=== PATIENT | male | born 1975 | race Caucasian/White ===

== ENCOUNTER 2016-08-25 20:49 | Emergency (ER) | payer SELFPAY | END 2016-08-25 22:05 | disposition left against medical advice (07) | LOC: ER 20:49 | DX: Z53.9 Procedure and treatment not carried out, unspecified reason (principal); R39.198 Other difficulties with micturition ==

== ENCOUNTER 2016-10-26 13:22 | Emergency (ER) | payer SELFPAY ==
[2016-10-26 13:31] VITALS: BP 133/85
== END 2016-10-26 14:45 | disposition left against medical advice (07) ==
LOC: ER 13:22
DX: Z53.9 Procedure and treatment not carried out, unspecified reason (principal); R10.9 Unspecified abdominal pain

== ENCOUNTER 2018-03-27 13:52 | Inpatient (IN) | payer MEDICAID ==
[2018-03-27] MEDS ORDERED: NORMAL SALINE 1000 ML 1,000 ML IV ONE (14:04)
[2018-03-27] MEDS ORDERED: ONDANSETRON HCL INJ/PF 4 MG/2 ML SDV IV ONE ×2 (14:04→16:13)
[2018-03-27] MEDS ORDERED: MORPHINE SULFATE 10 MG/ML INJ IV ONE ×2 (14:04→17:08)
--- NOTE | 2018-03-27 14:04 | ER Document Report ---
ED Medical Screen (RME) - General Chief Complaint: Nausea/Vomiting Stated Complaint: VOMITTNING Time Seen by Provider: 03/27/18 14:00 Notes: Patient is a 42-year-old male that presents to the emergency department for chief complaint of nausea, vomiting and abdominal pain, pain is mainly in epigastric region. ROS: Unless otherwise stated in this report the patient's positive and negative responses for review of systems for constitutional, eyes, ENT, cardiovascular, respiratory, gastrointestinal, neurological, genitourinary, musculoskeletal, and integumentary systems and related systems to the presenting problem are either as stated in the HPI or were not pertinent or were negative for the symptoms and/or complaints related to the presenting medical problem. PHYSICAL EXAMINATION: Vital signs reviewed. GENERAL: Well-appearing, well-nourished and in no acute distress. HEAD: Atraumatic, normocephalic. EYES: Pupils equal round extraocular movements intact, conjunctiva are normal. ENT: Nares patent NECK: Normal range of motion CV: Heart regular rate and rhythm LUNGS: No respiratory distress Musculoskeletal: Normal range of motion NEUROLOGICAL: Normal speech PSYCH: Normal mood, normal affect. MDM: Patient seen and examined for rapid initial assessment. Vital signs reviewed. A comprehensive ED assessment and evaluation of the patient, analysis of test results and completion of the medical decision making process will be conducted by additional ED providers. *Note is created using voice recognition software and may contain spelling, syntax or grammatical errors. TRAVEL OUTSIDE OF THE [place] IN LAST 30 DAYS: No - Related Data Allergies/Adverse Reactions: No Known Allergies Allergy (Verified 07/05/17 12:49) Past Medical History - Past Medical History Cardiac Medical History: Denies: Hx Coronary Artery Disease, Hx Heart Attack, Hx Hypertension Pulmonary Medical History: Reports: Hx Pneumonia Denies: Hx Asthma, Hx Bronchitis, Hx COPD Neurological Medical History: Denies: Hx Cerebrovascular Accident, Hx Seizures Renal/ Medical History: Denies: Hx Peritoneal Dialysis Musculoskeltal Medical History: Reports Hx Arthritis - BILAT UE Past Surgical History: Reports: Hx Oral Surgery - wisdom - Immunizations Hx Diphtheria, Pertussis, Tetanus Vaccination: Yes Physical Exam - Vital signs Vitals: Temp Pulse Resp BP Pulse Ox 98.4 F 83 18 150/97 H 95 03/27/18 13:58 03/27/18 13:58 03/27/18 13:58 03/27/18 13:58 03/27/18 13:58 Course - Vital Signs Vital signs: Temp Pulse Resp BP Pulse Ox 98.4 F 83 18 150/97 H 95 03/27/18 13:58 03/27/18 13:58 03/27/18 13:58 03/27/18 13:58 03/27/18 13:58 Doctor's Discharge - Discharge Referrals: ÁNGEL ELKINS PA-C [Primary Care Provider] - Follow up as needed
[2018-03-27 14:36] LABS: ABSOLUTE BASOPHILS # (AUTO) 0.1 10^3/uL (0.0-0.2); ABSOLUTE MONOCYTES (AUTO) 1.6 10^3/uL (0.1-1.4); ABSOLUTE NEUT (AUTO) 11.8 10^3/uL (1.7-8.2); APPEARANCE,URINE SLIGHTLY-CLOUDY; BASOPHILS % (AUTO) 0.5 % (0-2); BILIRUBIN,URINE NEGATIVE (NEGATIVE); COLOR,URINE AMBER; GLUCOSE, URINE NEGATIVE (NEGATIVE); HEMATOCRIT 53.1 % (37.9-51.0); HEMOGLOBIN 18.1 g/dL (13.5-17.0); KETONES,URINE NEGATIVE (NEGATIVE); LEUKOCYTE ESTERASE,URINE NEGATIVE (NEGATIVE); LYMPHOCYTES % (AUTO) 18.1 % (13-45); MEAN CORPUSCULAR HEMOGLOBIN 29.9 pg (27.0-33.4); MEAN CORPUSCULAR HGB CONC 34.2 g/dL (32.0-36.0); MEAN CORPUSCULAR VOLUME 87 fl (80-97); MONOCYTES % (AUTO) 9.6 % (3-13); NITRITE,URINE NEGATIVE (NEGATIVE); PLATELET COUNT 409 10^3/uL (150-450); PROTEIN,URINE 30 mg/dL (NEGATIVE); RED BLOOD COUNT 6.07 10^6/uL (4.35-5.55); SEGMENTED NEUTROPHILS % (AUTO) 71.8 % (42-78); TOTAL CELLS COUNTED % (AUTO) 100 %; WHITE BLOOD COUNT 16.4 10^3/uL (4.0-10.5)
[2018-03-27 14:53] LABS: ALANINE AMINOTRANSFERASE < 6 U/L (21-72); ALKALINE PHOSPHATASE 89 U/L (38-126); ANION GAP 17 (5-19); ASPARTATE AMINO TRANSFERASE 30 U/L (17-59); BILIRUBIN,DIRECT 0.5 mg/dL (0.0-0.4); BILIRUBIN,TOTAL 1.4 mg/dL (0.2-1.3); BLOOD UREA NITROGEN 17 mg/dL (7-20); CALCIUM 10.1 mg/dL (8.4-10.2); CARBON DIOXIDE 33 mmol/L (22-30); CHLORIDE 88 mmol/L (98-107); GLUCOSE 129 mg/dL (75-110); LIPASE 570.7 U/L (23-300); POTASSIUM 3.4 mmol/L (3.6-5.0); SODIUM 137.8 mmol/L (137-145); TOTAL PROTEIN 8.9 g/dL (6.3-8.2)
--- NOTE | 2018-03-27 15:01 | ER Document Report ---
ED General - General Chief Complaint: Nausea/Vomiting Stated Complaint: VOMITTNING Time Seen by Provider: 03/27/18 14:00 TRAVEL OUTSIDE OF THE [place] IN LAST 30 DAYS: No - HPI Onset/Duration: Gradual, Constant Quality of pain: Sharp, Stabbing Severity: Moderate Associated symptoms: Diarrhea, Nausea, Vomiting Exacerbated by: Denies Relieved by: Denies Similar symptoms previously: No Notes: Patient is a 42-year-old male that presents to the emergency department for chief complaint of nausea vomiting and abdominal pain. Patient reports general malaise for the last week. He has had 4 days of nausea and vomiting. He reports epigastric abdominal pain that radiates diffusely across his abdomen. The pain is sharp and constant. The pain is getting worse since onset. He denies any aggravating or relieving factors. He states he is able to keep down Pedialyte occasionally but is having a hard time eating because of the nausea. He reports a few episodes of diarrhea for the last few days as well. He denies any sick contacts. He reports fevers at home but has not taken his temperature. Past Medical History: Hypertension Past Surgical History: Negative Social History: Daily tobacco. Denies drugs and alcohol Family History: Reviewed and noncontributory for presenting illness Allergies: Reviewed, see documented allergy list. REVIEW OF SYSTEMS: CONSTITUTIONAL : fever chills No diaphoresis No recent illness EENT: No vision changes No congestion No sore throat CARDIOVASCULAR: No chest pain No palpitations RESPIRATORY: No shortness of breath No cough No difficulty breathing GASTROINTESTINAL: abdominal pain nausea vomiting diarrhea GENITOURINARY: No dysuria No hematuria No difficulty urinating MUSCULOSKELETAL: No back pain No leg pain No arm pain SKIN: No rashes No lesions LYMPHATIC: No swollen, enlarged glands. NEUROLOGICAL: No lightheadedness No headache No weakness No paresthesias PSYCHIATRIC: No anxiety No depression PHYSICAL EXAMINATION: Vital signs reviewed, nursing noted reviewed. GENERAL: Well-appearing, well-nourished and in no acute distress. HEAD: Atraumatic, normocephalic. EYES: Eyes appear normal, extraocular movements intact, sclera anicteric, conjunctiva are normal. ENT: nares patent, oropharynx clear without exudates. Moist mucous membranes. NECK: Normal range of motion, supple without lymphadenopathy LUNGS: Breath sounds clear to auscultation bilaterally and equal. No wheezes rales or rhonchi. HEART: Regular rate and rhythm without murmurs ABDOMEN: Soft, diffusely tender worse in the epigastric region, normoactive bowel sounds. No rebound, guarding, or rigidity. No masses appreciated. EXTREMITIES: Nontender, good range of motion, no pitting or edema. NEUROLOGICAL: No focal neurological deficits. Moves all extremities spontaneously Motor and sensory grossly intact on exam. PSYCH: Normal mood, normal affect. SKIN: Warm, Dry, normal turgor, no rashes or lesions noted on exposed skin - Related Data Allergies/Adverse Reactions: No Known Allergies Allergy (Verified 07/05/17 12:49) Past Medical History - Social History Smoking Status: Current Every Day Smoker Frequency of alcohol use: None Drug Abuse: None Family History: Reviewed & Not Pertinent Patient has suicidal ideation: No Patient has homicidal ideation: No - Past Medical History Cardiac Medical History: Denies: Hx Coronary Artery Disease, Hx Heart Attack, Hx Hypertension Pulmonary Medical History: Reports: Hx Pneumonia Denies: Hx Asthma, Hx Bronchitis, Hx COPD Neurological Medical History: Denies: Hx Cerebrovascular Accident, Hx Seizures Renal/ Medical History: Denies: Hx Peritoneal Dialysis Musculoskeletal Medical History: Reports Hx Arthritis - BILAT UE Past Surgical History: Reports: Hx Oral Surgery - wisdom - Immunizations Hx Diphtheria, Pertussis, Tetanus Vaccination: Yes Review of Systems - Review of Systems Notes: Dictated Physical Exam - Vital signs Vitals: Temp Pulse Resp BP Pulse Ox 98.4 F 83 18 150/97 H 95 03/27/18 13:58 03/27/18 13:58 03/27/18 13:58 03/27/18 13:58 03/27/18 13:58 - Notes Notes: Dictated Course - Re-evaluation Re-evalutation: 03/27/18 14:59 Vitals reviewed. Nursing notes reviewed. IV hydration, Zofran and morphine for symptomatic treatment. Lab work shows elevated lipase which in combination with his symptoms is consistent with acute pancreatitis. Patient also has a leukocytosis but no other Sirs criteria. Urine is negative for infection. Laboratory 03/27/18 03/27/18 03/27/18 14:15 14:15 14:15 WBC 16.4 H RBC 6.07 H Hgb 18.1 H Hct 53.1 H MCV 87 MCH 29.9 MCHC 34.2 RDW 13.0 Plt Count 409 Seg Neutrophils % 71.8 Lymphocytes % 18.1 Monocytes % 9.6 Eosinophils % 0.0 Basophils % 0.5 Absolute Neutrophils 11.8 H Absolute Lymphocytes 3.0 Absolute Monocytes 1.6 H Absolute Eosinophils 0.0 Absolute Basophils 0.1 Sodium 137.8 Potassium 3.4 L Chloride 88 L Carbon Dioxide 33 H Anion Gap 17 BUN 17 Creatinine 0.92 Est GFR ( Amer) > 60 Est GFR (Non-Af Amer) > 60 Glucose 129 H Calcium 10.1 Total Bilirubin 1.4 H Direct Bilirubin 0.5 H Neonat Total Bilirubin Not Reportable Neonat Direct Bilirubin Not Reportable Neonat Indirect Bili Not Reportable AST 30 ALT < 6 L Alkaline Phosphatase 89 Total Protein 8.9 H Albumin 5.0 Lipase 570.7 H Urine Color CARL Urine Appearance SLIGHTLY-CLOUDY Urine pH 5.0 Ur Specific [place] 1.030 Urine Protein 30 H Urine Glucose (UA) NEGATIVE Urine Ketones NEGATIVE Urine Blood SMALL H Urine Nitrite NEGATIVE Urine Bilirubin NEGATIVE Urine Urobilinogen 4.0 H Ur Leukocyte Esterase NEGATIVE Urine WBC (Auto) 1 Urine RBC (Auto) 1 Urine Bacteria (Auto) TRACE Squamous Epi Cells Auto <1 Urine Mucus (Auto) MANY Urine Ascorbic Acid NEGATIVE 03/27/18 14:59 03/27/18 16:18 Patient reevaluated and still having nausea and vomiting. He was given a second dose of Zofran for his intractable vomiting. CT scan is unremarkable. Because patient's abdominal pain and vomiting are only minimally improved as well as his elevation in lipase and his acute leukocytosis he will be admitted to the hospital for monitoring as well as IV hydration and further management of his pain and nausea. Case discussed with Dr. Torrez who accepted admission. Patient in agreement with this plan and stable at time of admission Abdomen/Pelvis CT 03/27/18 14:56 IMPRESSION: NO SIGNIFICANT OR ACUTE FINDING IN THE ABDOMEN OR PELVIS ON CT SCAN WITH IV CONTRAST. - Vital Signs Vital signs: Temp Pulse Resp BP Pulse Ox 98.4 F 83 18 150/97 H 95 03/27/18 13:58 03/27/18 13:58 03/27/18 13:58 03/27/18 13:58 03/27/18 13:58 - Laboratory Result Diagrams: 03/27/18 14:15 03/27/18 14:15 Laboratory results interpreted by me: 03/27/18 03/27/1818 14:15 14:15 14:15 WBC 16.4 H RBC 6.07 H Hgb 18.1 H Hct 53.1 H Absolute Neutrophils 11.8 H Absolute Monocytes 1.6 H Potassium 3.4 L Chloride 88 L Carbon Dioxide 33 H Glucose 129 H Total Bilirubin 1.4 H Direct Bilirubin 0.5 H ALT < 6 L Total Protein 8.9 H Lipase 570.7 H Urine Protein 30 H Urine Blood SMALL H Urine Urobilinogen 4.0 H - EKG Interpretation by Me Additional EKG results interpreted by me: 03/27/18 15:26 Interpreted by myself 1431: Normal sinus rhythm, rate 64, normal axis, no ectopy, no ST elevation Discharge - Discharge Clinical Impression: Pancreatitis Qualifiers: Chronicity: acute Pancreatitis type: other Acute pancreatitis complication: unspecified Qualified Code(s): K85.80 - Other acute pancreatitis without necrosis or infection Intractable vomiting Qualifiers: Vomiting type: unspecified Nausea presence: with nausea Qualified Code(s): R11.2 - Nausea with vomiting, unspecified Abdominal pain Qualifiers: Abdominal location: epigastric Qualified Code(s): R10.13 - Epigastric pain Condition: Stable Disposition: ADMITTED OBSERVATION Admitting Provider: Hospitalist Unit Admitted: Medical Floor
--- NOTE | 2018-03-27 16:00 | RADIOLOGY REPORT (SQ) ---
EXAM DESCRIPTION: CT ABD/PELVIS WITH IV ONLY COMPLETED DATE/TIME: 03/27/2018 3:43 pm REASON FOR STUDY: epigastric pain COMPARISON: 11/02/2013 TECHNIQUE: CT scan of the abdomen and pelvis performed using helical scanning technique with dynamic intravenous contrast injection. No oral contrast. Images reviewed with lung, soft tissue, and bone windows. Reconstructed coronal and sagittal MPR images reviewed. Delayed images for evaluation of the urinary system also acquired. All images stored on PACS. All CT scanners at this facility use dose modulation, iterative reconstruction, and/or weight based d osing when appropriate to reduce radiation dose to as low as reasonably achievable (ALARA). [facility]: Dose Right [facility]: CareDose [facility]: Dose Right [facility]: Teradose 4D [facility]: Geckoboard CONTRAST TYPE AND DOSE: 83 mL IV of Omnipaque 350- low osmolar. RENAL FUNCTION: BUN 17 creatinine 0.92 RADIATION DOSE: CT Rad equipment meets quality standard of care and radiation dose reduction techniq ues were employed. CTDIvol: 5.6 - 7.4 mGy. DLP: 737 mGy-cm.. LIMITATIONS: None. FINDINGS: LOWER CHEST: No significant findings. No nodules or infiltrates. LIVER: Normal size. No masses. No dilated ducts. SPLEEN: Normal size. No focal lesions. PANCREAS: No masses. No significant calcifications. No adjacent inflammation or peripancreatic fluid collections. Pancreatic duct not dilated. GALLBLADDER: No identified stones by CT criteria. No inflammatory changes to suggest cholecystitis. ADRENAL GLANDS: No significant masses or asymmetry. RIGHT KIDNEY AND URETER: No solid masses. Small cysts of the posterior cortex of the left kidney. N o significant calcifications. No hydronephrosis or hydroureter. LEFT KIDNEY AND URETER: No solid masses. No significant calcifications. No hydronephrosis or hydr oureter. AORTA AND VESSELS: No aneurysm. No dissection. Renal arteries, SMA, celiac without stenosis. RETROPERITONEUM: No retroperitoneal adenopathy, hemorrhage or masses. BOWEL AND PERITONEAL CAVITY: No dilated loops of bowel. No masses or inflammatory changes. No free f luid or peritoneal masses. No free air. APPENDIX: Normal. PELVIS: No mass. No free fluid. Normal bladder. ABDOMINAL WALL: No masses. No hernias. BONES: No significant or acute findings. OTHER: No other significant finding. IMPRESSION: NO SIGNIFICANT OR ACUTE FINDING IN THE ABDOMEN OR PELVIS ON CT SCAN WITH IV CONTRAST. TECHNICAL DOCUMENTATION: JOB ID: [id number] Quality ID # [id number]: Final reports with documentation of one or more dose reduction techniques (e.g., Au tomated exposure control, adjustment of the mA and/or kV according to patient size, use of iterative reconstruction technique) 2010 [employer]- All Rights Reserved Reading location - IP/workstation name: [email or web address]
--- NOTE | 2018-03-27 16:06 | EKG REPORT ---
SEVERITY:- NORMAL ECG - SINUS RHYTHM : Confirmed by: Rossana Martin 27-Mar-2018 16:05:16
[2018-03-27] MEDS ORDERED: ONDANSETRON HCL INJ/PF 4 MG/2 ML SDV IV PRN (16:51)
[2018-03-27] MEDS ORDERED: HYDRALAZINE HCL 10 MG TABLET PO PRN (17:09)
--- NOTE | 2018-03-27 17:23 | PDOC H&P ---
History of Present Illness Admission Date/PCP: 03/27/18 16:30 Patient complains of: Midepigastric abdominal pain intractable nausea and vomiting History of Present Illness: STEVEN CASTREJON is a 42 year old male who presents the emergency room with a complaint of midepigastric abdominal pain and intractable nausea and vomiting for the past 5 days. Patient states on Wednesday night he began to have some pain in his stomach area. The nausea was then followed by vomiting. The next day he had numerous episodes of vomiting to the point of dry heaves. The vomitus contained coffee ground material on and off and at times he was able to cough up blood clots. He denies any change in his bowel habits although his last bowel movement was Wednesday of last week. He attempted to keep himself hydrated with Pedialyte and other liquids but was having intermittent vomiting. At presentation to the emergency room he did not have acute renal injury he was hypokalemic make with a potassium of 3.3. His lipase was 500 and his white count was 16,000 with a hemoglobin of 18 consistent with volume contraction. A CT of the abdomen was performed which was unremarkable and patient was given IV hydration and antiemetics continue to have nausea while in the emergency room. Patient relates a history of possible ulcer disease 10 years ago he was treated with omeprazole and Mylanta. He suffers from hypertension and is on only a single medication but he does not remember the name of it. He does not drink alcohol do drugs but does smoke a pack a day and has for the past 30 years. With his history of coffee-ground and hematemesis it was recommended he come in for admission and further evaluation. 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 Hematology: Denies: Anemia Past Surgical History Past Surgical History: Reports: None Social History Smoking Status: Current Every Day Smoker Cigarettes Packs Per Day: 1 Number of Years Smokin Frequency of Alcohol Use: None Drugs: None - Advance Directive Resuscitation Status: Full Code Family History Family History: COPD - Father, DM - Mother, Hypertension - Mother Parental Family History Reviewed: Yes Children Family History Reviewed: Yes Sibling(s) Family History Reviewed.: Yes Medication/Allergy Home Medications: Alprazolam [Xanax] 1 mg PO TID 06/21/17 Lisinopril 20 mg PO DAILY 03/27/18 Allergies/Adverse Reactions: No Known Allergies Allergy (Verified 07/05/17 12:49) Review of Systems All systems: reviewed and no additional remarkable complaints except as stated - Complete review of systems negative with the exception of the nausea vomiting as stated in the chief complaint Physical Exam Vital Signs: Temp Pulse Resp BP Pulse Ox 98.4 F 83 18 150/97 H 95 03/27/18 13:58 03/27/18 13:58 03/27/18 13:58 03/27/18 13:58 03/27/18 13:58 General appearance: PRESENT: no acute distress, well-developed, well-nourished Head exam: PRESENT: atraumatic, normocephalic Eye exam: PRESENT: conjunctiva pink, EOMI, PERRLA. ABSENT: scleral icterus Mouth exam: PRESENT: moist, tongue midline Neck exam: ABSENT: carotid bruit, JVD, lymphadenopathy, thyromegaly Respiratory exam: PRESENT: clear to auscultation [place]. ABSENT: rales, rhonchi, wheezes Cardiovascular exam: PRESENT: RRR. ABSENT: diastolic murmur, rubs, systolic murmur Pulses: PRESENT: normal dorsalis pedis pul GI/Abdominal exam: PRESENT: normal bowel sounds, soft, tenderness - Epigastric tenderness. ABSENT: distended, guarding, mass, organolmegaly, rebound Rectal exam: PRESENT: deferred Extremities exam: PRESENT: full ROM. ABSENT: calf tenderness, clubbing, pedal edema Neurological exam: PRESENT: alert, awake, oriented to person, oriented to place , oriented to time, oriented to situation, CN II-XII grossly intact. ABSENT: motor sensory deficit Psychiatric exam: PRESENT: appropriate affect, normal mood. ABSENT: homicidal ideation, suicidal ideation Skin exam: PRESENT: dry, intact, warm. ABSENT: cyanosis, rash Results Impressions: Abdomen/Pelvis CT 03/27/18 14:56 IMPRESSION: NO SIGNIFICANT OR ACUTE FINDING IN THE ABDOMEN OR PELVIS ON CT SCAN WITH IV CONTRAST. Assessment & Plan - Diagnosis (1) Upper gastrointestinal hemorrhage Is this a current diagnosis for this admission?: Yes Plan: Patient gives a history of coffee ground and bright red blood clot with his emesis on and off throughout the week. His hemoglobin is 18 he is volume contracted although his BUN and creatinine are normal. He may have Tayler- Keyes tear versus diffuse gastritis or an outlet channel ulcer causing his intractable nausea and vomiting. We will place on medical floor begin IV Protonix 40 mg every 12 hours n.p.o. consult surgery for upper endoscopy. Guaiac test stool. Every 6 hours H&H's (2) Pancreatitis Qualifiers: Chronicity: acute Pancreatitis type: other Acute pancreatitis complication: unspecified Qualified Code(s): K85.80 - Other acute pancreatitis without necrosis or infection Is this a current diagnosis for this admission?: Yes Plan: Lipase is 500 which is not twice the upper limits of normal. It is unclear the significance of this will trend lipases daily for the present. (3) Intractable vomiting Qualifiers: Vomiting type: unspecified Nausea presence: with nausea Qualified Code(s) : R11.2 - Nausea with vomiting, unspecified Is this a current diagnosis for this admission?: Yes Plan: Likely due to diffuse gastritis. IV Protonix surgical consult (4) Abdominal pain Qualifiers: Abdominal location: epigastric Qualified Code(s): R10.13 - Epigastric pain Is this a current diagnosis for this admission?: Yes Plan: Due to gastritis. (5) Hypertension Is this a current diagnosis for this admission?: Yes Plan: Patient does not know the name of the single medication he does take. Will use IV hydralazine as needed for now (6) Hypokalemia Is this a current diagnosis for this admission?: Yes Plan: Hydrate with D5 half-normal saline with 20 of K BMP in a.m. make further adjustments going forward when labs become available. - Time Time Spent: 50 to 70 Minutes Anticipated discharge: Home Within: within 48 hours - Inpatient Certification Based on my medical assessment, after consideration of the patient's comorbidities, presenting symptoms, or acuity I expect that the services needed warrant INPATIENT care.: Yes I certify that my determination is in accordance with my understanding of Medicare's requirements for reasonable and necessary INPATIENT services [42 CFR 412.3e].: Yes Medical Necessity: Significant Comorbidiites Make Outpatient Treatment Too Risky , Need Close Monitoring Due to Risk of Patient Decompensation
[2018-03-27 18:50] LABS: ABSOLUTE LYMPHOCYTES (AUTO) 3.3 10^3/uL (0.5-4.7); ABSOLUTE MONOCYTES (AUTO) 1.2 10^3/uL (0.1-1.4); ABSOLUTE NEUT (AUTO) 10.1 10^3/uL (1.7-8.2); BASOPHILS % (AUTO) 0.2 % (0-2); EOSINOPHILS % (AUTO) 0.1 % (0-6); HEMATOCRIT 48.6 % (37.9-51.0); HEMOGLOBIN 16.6 g/dL (13.5-17.0); LYMPHOCYTES % (AUTO) 22.6 % (13-45); MEAN CORPUSCULAR HEMOGLOBIN 30.1 pg (27.0-33.4); MEAN CORPUSCULAR HGB CONC 34.2 g/dL (32.0-36.0); MEAN CORPUSCULAR VOLUME 88 fl (80-97); MONOCYTES % (AUTO) 8.5 % (3-13); PLATELET COUNT 371 10^3/uL (150-450); RED BLOOD COUNT 5.52 10^6/uL (4.35-5.55); RED CELL DISTRIBUTION WIDTH 12.9 % (11.5-14.0); SEGMENTED NEUTROPHILS % (AUTO) 68.6 % (42-78); TOTAL CELLS COUNTED % (AUTO) 100 %; WHITE BLOOD COUNT 14.7 10^3/uL (4.0-10.5)
[2018-03-27] MEDS: POTASSI CL 20 MEQ/D5-1/2NS 1L 1,000 ML IV PRN (19:35)
--- NOTE | 2018-03-27 21:52 | PDOC CONSULTATION ---
Consultation Consult reason:: Coffee-ground emesis, upper abdominal pain. History of Present Illness Admission Date/PCP: 03/27/18 16:52 History of Present Illness: STEVEN CASTREJON is a 42 year old male seen at the request of the hospitalist service. The patient has a long history of gastroesophageal reflux disease. The patient has not sought treatment due to a lack of insurance. Over the last several days, the patient reports increasing upper abdominal pain, water brash, and a burning sensation in his upper abdomen and lower chest. He rates his pain as 6 out of 10. It is constant and unrelenting. It does not radiate his pain is worse with eating. Nothing makes it better. The patient does not take any antiacid or anti-reflux medications. The patient has increasing amounts of nausea and vomiting. The patient cannot keep anything down at this time. The patient's symptoms have become so severe that he presented to the emergency department. The patient reports smoking every day, as well as large amounts of caffeine usage. He denies alcohol use, NSAID use, and steroid use. He denies headache, shortness of breath, fevers, chills, orthostasis, dizziness, fatigue, blurry vision. 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 Hematology: Denies: Anemia Past Surgical History Past Surgical History: Reports: None Social History Smoking Status: Current Every Day Smoker Cigarettes Packs Per Day: 1 Number of Years Smokin Frequency of Alcohol Use: None Hx Recreational Drug Use: No Drugs: None Hx Prescription Drug Abuse: No - Advance Directive Resuscitation Status: Full Code Family History Family History: COPD - Father, DM - Mother, Hypertension - Mother Parental Family History Reviewed: Yes Children Family History Reviewed: Yes Sibling(s) Family History Reviewed.: Yes Medication/Allergy Home Medications: Alprazolam [Xanax] 1 mg PO TID 06/21/17 Lisinopril 20 mg PO DAILY 03/27/18 Allergies/Adverse Reactions: No Known Allergies Allergy (Verified 07/05/17 12:49) Review of Systems Constitutional: PRESENT: anorexia. ABSENT: chills, fatigue, fever(s), headache( s) Eyes: ABSENT: visual disturbances Ears: ABSENT: hearing changes Nose, Mouth, and Throat: ABSENT: sore throat Cardiovascular: PRESENT: chest pain Respiratory: ABSENT: cough Gastrointestinal: PRESENT: abdominal pain, coffee ground emesis, nausea, vomiting Genitourinary: ABSENT: dysuria Musculoskeletal: ABSENT: back pain Integumentary: ABSENT: pruritus, rash Neurological: ABSENT: abnormal gait, abnormal movements, abnormal speech, confusion, convulsions, dizziness Psychiatric: ABSENT: anxiety, depression Endocrine: ABSENT: cold intolerance, heat intolerance Hematologic/Lymphatic: ABSENT: easy bleeding, easy bruising Physical Exam Vital Signs: Temp Pulse Resp BP Pulse Ox 98.5 F 65 16 137/71 H 97 03/27/18 19:00 03/27/18 19:00 03/27/18 19:00 03/27/18 19:00 03/27/18 19:00 Intake & Output 03/26/18 03/27/18 03/28/18 06:59 06:59 06:59 Weight 72.8 kg General appearance: PRESENT: no acute distress Head exam: PRESENT: atraumatic, normocephalic Eye exam: PRESENT: EOMI, PERRLA. ABSENT: scleral icterus Mouth exam: PRESENT: moist, neck supple Neck exam: ABSENT: meningismus, tenderness, thyromegaly, tracheal deviation Respiratory exam: PRESENT: clear to auscultation carolynn, unlabored. ABSENT: chest wall tenderness, tachypnea, wheezes Cardiovascular exam: PRESENT: RRR Pulses: PRESENT: normal radial pulses Vascular exam: PRESENT: normal capillary refill. ABSENT: pallor GI/Abdominal exam: PRESENT: soft. ABSENT: distended, firm, guarding, hernia, rigid, tenderness Rectal exam: PRESENT: deferred Extremities exam: PRESENT: clubbing Neurological exam: PRESENT: alert, awake, CN II-XII grossly intact. ABSENT: oriented to person, oriented to place, oriented to time, oriented to situation Psychiatric exam: ABSENT: agitated, anxious, depressed Focused psych exam: ABSENT: delusional Skin exam: ABSENT: cyanosis, erythema, jaundice Results Laboratory Results: 03/27/18 18:40 03/27/18 18:40 WBC 14.7 H RBC 5.52 Hgb 16.6 Hct 48.6 MCV 88 MCH 30.1 MCHC 34.2 RDW 12.9 Plt Count 371 Seg Neutrophils % 68.6 Lymphocytes % 22.6 Monocytes % 8.5 Eosinophils % 0.1 Basophils % 0.2 Absolute Neutrophils 10.1 H Absolute Lymphocytes 3.3 Absolute Monocytes 1.2 Absolute Eosinophils 0.0 Absolute Basophils 0.0 Impressions: Abdomen/Pelvis CT 03/27/18 14:56 IMPRESSION: NO SIGNIFICANT OR ACUTE FINDING IN THE ABDOMEN OR PELVIS ON CT SCAN WITH IV CONTRAST. Assessment & Plan - Diagnosis (1) Coffee ground emesis Is this a current diagnosis for this admission?: Yes (2) Abdominal pain Qualifiers: Abdominal location: epigastric Qualified Code(s): R10.13 - Epigastric pain Is this a current diagnosis for this admission?: Yes (3) Intractable vomiting Qualifiers: Vomiting type: unspecified Nausea presence: with nausea Qualified Code(s) : R11.2 - Nausea with vomiting, unspecified Is this a current diagnosis for this admission?: Yes - Plan Summary Plan Summary: This is a 42-year-old male with abdominal pain, coffee-ground emesis, and symptoms consistent with reflux. I believe the patient is experiencing severe gastritis and reflux. I have offered the patient EGD, and he has agreed. Risks /benefits discussed, informed consent obtained, and all questions answered. Currently, the patient is receiving IV PPI twice daily. I would continue this. I would also consider adding Carafate. Will follow.
[2018-03-27] MEDS: PANTOPRAZOLE SODIUM 40 MG VIAL IV SCH (22:47)
[2018-03-27] MEDS: MORPHINE SULFATE 10 MG/ML INJ IV PRN (22:48)
[2018-03-28 00:24] LABS: ABSOLUTE MONOCYTES (AUTO) 1.3 10^3/uL (0.1-1.4); ABSOLUTE NEUT (AUTO) 8.9 10^3/uL (1.7-8.2); BASOPHILS % (AUTO) 0.2 % (0-2); HEMATOCRIT 45.6 % (37.9-51.0); HEMOGLOBIN 15.6 g/dL (13.5-17.0); LYMPHOCYTES % (AUTO) 22.8 % (13-45); MEAN CORPUSCULAR HEMOGLOBIN 30.1 pg (27.0-33.4); MEAN CORPUSCULAR HGB CONC 34.2 g/dL (32.0-36.0); MEAN CORPUSCULAR VOLUME 88 fl (80-97); PLATELET COUNT 327 10^3/uL (150-450); RED BLOOD COUNT 5.17 10^6/uL (4.35-5.55); RED CELL DISTRIBUTION WIDTH 12.8 % (11.5-14.0); TOTAL CELLS COUNTED % (AUTO) 100 %; WHITE BLOOD COUNT 13.3 10^3/uL (4.0-10.5)
[2018-03-28 05:16] LABS: ABSOLUTE BASOPHILS # (AUTO) 0.1 10^3/uL (0.0-0.2); ABSOLUTE EOSINOPHILS # (AUTO) 0.1 10^3/uL (0.0-0.6); ABSOLUTE LYMPHOCYTES (AUTO) 5.6 10^3/uL (0.5-4.7); ABSOLUTE MONOCYTES (AUTO) 1.4 10^3/uL (0.1-1.4); ABSOLUTE NEUT (AUTO) 6.9 10^3/uL (1.7-8.2); BASOPHILS % (AUTO) 0.6 % (0-2); EOSINOPHILS % (AUTO) 0.4 % (0-6); HEMATOCRIT 46.4 % (37.9-51.0); HEMOGLOBIN 15.8 g/dL (13.5-17.0); LYMPHOCYTES % (AUTO) 39.6 % (13-45); MEAN CORPUSCULAR HEMOGLOBIN 29.9 pg (27.0-33.4); MEAN CORPUSCULAR HGB CONC 34.1 g/dL (32.0-36.0); MEAN CORPUSCULAR VOLUME 88 fl (80-97); MONOCYTES % (AUTO) 10.1 % (3-13); PLATELET COUNT 313 10^3/uL (150-450); RED BLOOD COUNT 5.29 10^6/uL (4.35-5.55); RED CELL DISTRIBUTION WIDTH 12.9 % (11.5-14.0); SEGMENTED NEUTROPHILS % (AUTO) 49.3 % (42-78); TOTAL CELLS COUNTED % (AUTO) 100 %
[2018-03-28 05:38] LABS: ANION GAP 11 (5-19); BLOOD UREA NITROGEN 13 mg/dL (7-20); CALCIUM 9.4 mg/dL (8.4-10.2); CARBON DIOXIDE 32 mmol/L (22-30); CHLORIDE 95 mmol/L (98-107); CHOLESTEROL 176.55 mg/dL (0-200); GLUCOSE 99 mg/dL (75-110); LIPASE 178.5 U/L (23-300); PHOSPHORUS 4.1 mg/dL (2.5-4.5); SODIUM 138.4 mmol/L (137-145); TRIGLYCERIDES 127 mg/dL (<150)
[2018-03-28 05:48] LABS: DIRECT LDL 138 mg/dL (<100)
[2018-03-28 05:54] LABS: FREE T3 3.67 pg/mL (2.77-5.27); FREE T4 (FREE THYROXINE) 1.3 ng/dL (0.78-2.19)
[2018-03-28 06:07] LABS: THYROID STIMULATING HORMONE 0.75 uIU/mL (0.47-4.68)
[2018-03-28] MEDS: POTASSI CL 20 MEQ/D5-1/2NS 1L 1,000 ML IV PRN (07:02)
--- NOTE | 2018-03-28 07:29 | PDOC PROGRESS REPORT ---
Subjective Progress Note for:: 03/28/18 Reason For Visit: GASTRITIS UPPER GI BLEED Physical Exam Vital Signs: Temp Pulse Resp BP Pulse Ox 98.5 F 61 16 135/77 H 97 03/27/18 19:00 03/27/18 23:37 03/27/18 23:37 03/27/18 23:37 03/27/18 19:00 Intake & Output 03/27/18 03/28/18 03/29/18 06:59 06:59 06:59 Intake Total 1000 Balance 1000 Weight 73.3 kg General appearance: PRESENT: no acute distress, cooperative Head exam: PRESENT: atraumatic, normocephalic Eye exam: PRESENT: EOMI, PERRLA Mouth exam: PRESENT: moist, neck supple Neck exam: ABSENT: meningismus, tenderness, thyromegaly, tracheal deviation Respiratory exam: PRESENT: clear to auscultation carolynn. ABSENT: chest wall tenderness Cardiovascular exam: PRESENT: RRR Pulses: PRESENT: normal radial pulses Vascular exam: PRESENT: normal capillary refill. ABSENT: pallor GI/Abdominal exam: PRESENT: soft, tenderness - Epigastric Rectal exam: PRESENT: deferred Extremities exam: ABSENT: clubbing Musculoskeletal exam: ABSENT: deformity Neurological exam: PRESENT: alert, awake, oriented to person, oriented to place , oriented to time, oriented to situation, CN II-XII grossly intact Psychiatric exam: ABSENT: agitated, anxious, depressed Focused psych exam: ABSENT: delusional Skin exam: ABSENT: cyanosis, erythema, jaundice Results Laboratory Results: 03/28/18 04:52 03/28/18 04:52 03/27/18 03/28/18 03/28/18 18:40 00:15 04:52 WBC 14.7 H 13.3 H RBC 5.52 5.17 Hgb 16.6 15.6 Hct 48.6 45.6 MCV 88 88 MCH 30.1 30.1 MCHC 34.2 34.2 RDW 12.9 12.8 Plt Count 371 327 Seg Neutrophils % 68.6 67.0 Lymphocytes % 22.6 22.8 Monocytes % 8.5 10.0 Eosinophils % 0.1 0.0 Basophils % 0.2 0.2 Absolute Neutrophils 10.1 H 8.9 H Absolute Lymphocytes 3.3 3.0 Absolute Monocytes 1.2 1.3 Absolute Eosinophils 0.0 0.0 Absolute Basophils 0.0 0.0 Sodium Potassium Chloride Carbon Dioxide Anion Gap BUN Creatinine Est GFR ( Amer) Est GFR (Non-Af Amer) Glucose Calcium Phosphorus Magnesium Triglycerides Cholesterol LDL Cholesterol Direct VLDL Cholesterol HDL Cholesterol Lipase TSH 0.75 Free T4 1.30 Free T3 pg/mL 3.67 03/28/18 03/28/18 04:52 04:52 WBC 14.0 H RBC 5.29 Hgb 15.8 Hct 46.4 MCV 88 MCH 29.9 MCHC 34.1 RDW 12.9 Plt Count 313 Seg Neutrophils % 49.3 Lymphocytes % 39.6 Monocytes % 10.1 Eosinophils % 0.4 Basophils % 0.6 Absolute Neutrophils 6.9 Absolute Lymphocytes 5.6 H Absolute Monocytes 1.4 Absolute Eosinophils 0.1 Absolute Basophils 0.1 Sodium 138.4 Potassium 4.0 Chloride 95 L Carbon Dioxide 32 H Anion Gap 11 BUN 13 Creatinine 0.88 Est GFR ( Amer) > 60 Est GFR (Non-Af Amer) > 60 Glucose 99 Calcium 9.4 Phosphorus 4.1 Magnesium 2.4 H Triglycerides 127 Cholesterol 176.55 LDL Cholesterol Direct 138 H VLDL Cholesterol 25.0 HDL Cholesterol 30 L Lipase 178.5 TSH Free T4 Free T3 pg/mL Impressions: Abdomen/Pelvis CT 03/27/18 14:56 IMPRESSION: NO SIGNIFICANT OR ACUTE FINDING IN THE ABDOMEN OR PELVIS ON CT SCAN WITH IV CONTRAST. Assessment & Plan - Diagnosis (1) Coffee ground emesis Is this a current diagnosis for this admission?: Yes (2) Abdominal pain Qualifiers: Abdominal location: epigastric Qualified Code(s): R10.13 - Epigastric pain Is this a current diagnosis for this admission?: Yes (3) Intractable vomiting Qualifiers: Vomiting type: unspecified Nausea presence: with nausea Qualified Code(s) : R11.2 - Nausea with vomiting, unspecified Is this a current diagnosis for this admission?: Yes - Plan Summary Plan Summary: This is a 42-year-old male with likely gastritis. He reports coffee-ground emesis. The patient is currently on PPI therapy. I have offered him EGD for diagnostic purposes, and he has agreed. Risks/benefits discussed, informed consent obtained, and all questions answered.
[2018-03-28] MEDS: MORPHINE SULFATE 10 MG/ML INJ IV PRN ×2 (07:35→20:28)
[2018-03-28] MEDS: PANTOPRAZOLE SODIUM 40 MG VIAL IV SCH ×2 (10:22→21:52)
[2018-03-28] MEDS ORDERED: PROPOFOL INJ 200 MG/20 ML VIAL IV ONE ×2 (11:42→13:42)
[2018-03-28] MEDS ORDERED: LIDOCAINE 2% INJ-PF (20 MG/ML) 10 ML AMPUL ONE (11:49)
[2018-03-28] MEDS ORDERED: DIPHENHYDRAMINE HCL 50 MG/ML VIAL IV PRN (13:24)
[2018-03-28] MEDS ORDERED: FENTANYL CITRATE INJ/PF 100 MCG/2 ML AMPUL IV PRN ×3 (13:24)
[2018-03-28] MEDS ORDERED: PROMETHAZINE HCL INJ 25 MG/1 ML VIAL IV PRN (13:24)
--- NOTE | 2018-03-28 13:40 | Operative Report ---
Operative Report DATE OF SURGERY: 03/28/18 PREOPERATIVE DIAGNOSIS: Hematemesis POSTOPERATIVE DIAGNOSIS: Same. 1. Severe gastritis. 2. Multiple gastric ulcers. 3. No evidence of active bleeding OPERATION: 1. Esophagogastroduodenoscopy. 2. Gastric antral biopsy for CLOtest SURGEON: MK JOSEPH ANESTHESIA: LMAC TISSUE REMOVED OR ALTERED: Biopsy of gastric antrum for ALDO testing COMPLICATIONS: None ESTIMATED BLOOD LOSS: Scant INTRAOPERATIVE FINDINGS: See below PROCEDURE: Patient taken to the preop holding area the main operating room where LMAC anesthesia was induced. He was placed in a semirecumbent position, tilted to the left side oral mouthpiece inserted and appropriate level of anesthesia confirmed Surgical plan surgical timeout conducted. The flexible adult upper endoscope was advanced to the oropharynx, down the esophagus, through the stomach and into the first and second portions of the duodenum. There was no evidence of active bleeding, or clot. The first and second portion of the duodenum were normal. There were 2 pyloric channel ulcers anterior position, with scar, small, not actively bleeding. There was no evidence of narrowing of the pylorus In the stomach there was moderate to diffuse gastritis with diffuse erythematous areas in the gastric cardia. Photos were taken. There were also multiple small anterior antral ulcers, not actively bleeding. A random biopsy of the gastric antrum was chosen with a cold forceps device and sent for ALDO testing. Bleeding was minimal. Scope was retroflexed and no evidence of hiatal hernia. Photos were taken. Scope was withdrawn to the junction which was at 40 cm from the incisor. There was no evidence of distal esophagitis, no stricture, no bleeding and no varix in the stomach. The scope was withdrawn with the patient oropharynx. He tolerated the procedure well. He was taken to recovery room in stable condition. Impression: Diffuse gastritis with multiple gastric and prepyloric ulcers,: Likely source of bleeding, no acute bleeding at this time. Recommendations: 1. Proton pump inhibitor, await ALDO testing results; follow-up with primary care team 2. Smoking cessation and other precipitating factors to be discussed with patient
--- NOTE | 2018-03-28 14:19 | PDOC PROGRESS REPORT ---
Subjective Progress Note for:: 03/28/18 Subjective:: STEVEN CASTREJON is a 42 year old male who presents the emergency room with a complaint of midepigastric abdominal pain and intractable nausea and vomiting for the past 5 days. Patient states on Wednesday night he began to have some pain in his stomach area. The nausea was then followed by vomiting. The next day he had numerous episodes of vomiting to the point of dry heaves. The vomitus contained coffee ground material on and off and at times he was able to cough up blood clots. He denies any change in his bowel habits although his last bowel movement was Wednesday of last week. He attempted to keep himself hydrated with Pedialyte and other liquids but was having intermittent vomiting. Patient's hemoglobin stable x3. Less abdominal pain. Patient underwent upper endoscopy and numerous small nonbleeding gastric ulcers were found and diffuse severe gastritis. Reason For Visit: GASTRITIS UPPER GI BLEED Physical Exam Vital Signs: Temp Pulse Resp BP Pulse Ox 98.7 F 59 L 16 129/69 H 98 03/28/18 11:22 03/28/18 11:22 03/28/18 11:22 03/28/18 11:22 03/28/18 11:22 Intake & Output 03/27/18 03/28/18 03/29/18 06:59 06:59 06:59 Intake Total 1000 Balance 1000 Weight 73.3 kg General appearance: PRESENT: no acute distress, well-developed, well-nourished Neck exam: ABSENT: carotid bruit, JVD, lymphadenopathy, thyromegaly Respiratory exam: PRESENT: clear to auscultation carolynn. ABSENT: rales, rhonchi, wheezes Cardiovascular exam: PRESENT: RRR. ABSENT: diastolic murmur, rubs, systolic murmur GI/Abdominal exam: PRESENT: normal bowel sounds, soft, tenderness - Midepigastric. ABSENT: distended, guarding, mass, organolmegaly, rebound Extremities exam: PRESENT: full ROM. ABSENT: calf tenderness, clubbing, pedal edema Results Laboratory Results: 03/28/18 04:52 03/28/18 04:52 03/27/18 03/28/18 03/28/18 18:40 00:15 04:52 WBC 14.7 H 13.3 H RBC 5.52 5.17 Hgb 16.6 15.6 Hct 48.6 45.6 MCV 88 88 MCH 30.1 30.1 MCHC 34.2 34.2 RDW 12.9 12.8 Plt Count 371 327 Seg Neutrophils % 68.6 67.0 Lymphocytes % 22.6 22.8 Monocytes % 8.5 10.0 Eosinophils % 0.1 0.0 Basophils % 0.2 0.2 Absolute Neutrophils 10.1 H 8.9 H Absolute Lymphocytes 3.3 3.0 Absolute Monocytes 1.2 1.3 Absolute Eosinophils 0.0 0.0 Absolute Basophils 0.0 0.0 Sodium Potassium Chloride Carbon Dioxide Anion Gap BUN Creatinine Est GFR ( Amer) Est GFR (Non-Af Amer) Glucose Calcium Phosphorus Magnesium Triglycerides Cholesterol LDL Cholesterol Direct VLDL Cholesterol HDL Cholesterol Lipase TSH 0.75 Free T4 1.30 Free T3 pg/mL 3.67 03/28/18 03/28/18 04:52 04:52 WBC 14.0 H RBC 5.29 Hgb 15.8 Hct 46.4 MCV 88 MCH 29.9 MCHC 34.1 RDW 12.9 Plt Count 313 Seg Neutrophils % 49.3 Lymphocytes % 39.6 Monocytes % 10.1 Eosinophils % 0.4 Basophils % 0.6 Absolute Neutrophils 6.9 Absolute Lymphocytes 5.6 H Absolute Monocytes 1.4 Absolute Eosinophils 0.1 Absolute Basophils 0.1 Sodium 138.4 Potassium 4.0 Chloride 95 L Carbon Dioxide 32 H Anion Gap 11 BUN 13 Creatinine 0.88 Est GFR ( Amer) > 60 Est GFR (Non-Af Amer) > 60 Glucose 99 Calcium 9.4 Phosphorus 4.1 Magnesium 2.4 H Triglycerides 127 Cholesterol 176.55 LDL Cholesterol Direct 138 H VLDL Cholesterol 25.0 HDL Cholesterol 30 L Lipase 178.5 TSH Free T4 Free T3 pg/mL Impressions: Abdomen/Pelvis CT 03/27/18 14:56 IMPRESSION: NO SIGNIFICANT OR ACUTE FINDING IN THE ABDOMEN OR PELVIS ON CT SCAN WITH IV CONTRAST. Assessment & Plan - Diagnosis (1) Acute gastritis without bleeding Is this a current diagnosis for this admission?: Yes Plan: No active bleeding on endoscopy moderate to severe gastritis. Patient did have some coffee grounds prior to admission but no active bleeding during endoscopy. Globin stable continue IV Protonix (2) Acute peptic ulcer NOS Is this a current diagnosis for this admission?: Yes Plan: Patient had numerous gastric ulcers on endoscopy. Continue IV Protonix begin full liquid diet advance as tolerated if tolerating discharge in a.m. Patient will need H. pylori follow-up by his primary care provider. (3) Upper gastrointestinal hemorrhage Is this a current diagnosis for this admission?: Yes Plan: Minimal hemoglobin stable bleeding not documented with endoscopy but by history of coffee-ground emesis and scant blood clots in the emesis (4) Pancreatitis Qualifiers: Chronicity: acute Pancreatitis type: other Acute pancreatitis complication: unspecified Qualified Code(s): K85.80 - Other acute pancreatitis without necrosis or infection Is this a current diagnosis for this admission?: Yes Plan: Pancreatitis ruled out lipase 500 less than 3 times normal now 150 normal range (5) Intractable vomiting Qualifiers: Vomiting type: unspecified Nausea presence: with nausea Qualified Code(s) : R11.2 - Nausea with vomiting, unspecified Is this a current diagnosis for this admission?: Yes Plan: Resolved (6) Abdominal pain Qualifiers: Abdominal location: epigastric Qualified Code(s): R10.13 - Epigastric pain Is this a current diagnosis for this admission?: Yes Plan: Due to gastritis and peptic ulcer (7) Hypertension Is this a current diagnosis for this admission?: Yes Plan: Controlled (8) Hypokalemia Is this a current diagnosis for this admission?: Yes Plan: Resolved - Time Time Spent with patient: 25-34 minutes Anticipated discharge: Home Within: within 24 hours
--- NOTE | 2018-03-28 15:54 | RADIOLOGY REPORT (SQ) ---
EXAM DESCRIPTION: U/S THYROID/SFT TISS HD NECK COMPLETED DATE/TIME: 03/28/2018 3:11 pm REASON FOR STUDY: h/o hyperthyroidism COMPARISON: None. TECHNIQUE: Dynamic and static oneill-scale images acquired of the thyroid gland. Selected additional c olor/power Doppler images recorded. All images stored to PACS. LIMITATIONS: None. FINDINGS: RIGHT LOBE: Normal size, 4.9 x 1.5 x 1.7 cm. Homogeneous echotexture. No cystic or solid masses. LEFT LOBE: Normal size, 4.8 x 1.5 x 1.3 cm. Homogeneous echotexture. No cystic or solid masses. ISTHMUS: Normal size, 2.3 mm. Homogeneous echotexture. No cystic or solid masses. OTHER: No other significant finding. IMPRESSION: NORMAL THYROID ULTRASOUND. TECHNICAL DOCUMENTATION: JOB ID: [id number] [employer]- All Rights Reserved Reading location - IP/workstation name: [email or web address]
[2018-03-28] MEDS ORDERED: HYDRALAZINE HCL 10 MG TABLET PO PRN (16:00)
[2018-03-28] MEDS ORDERED: ALPRAZOLAM 0.5 MG TABLET PO ONE (17:00)
[2018-03-28] MEDS: ALPRAZOLAM 0.5 MG TABLET PO SCH (21:52)
[2018-03-29] MEDS: MORPHINE SULFATE 10 MG/ML INJ IV PRN (02:57)
[2018-03-29] MEDS: ALPRAZOLAM 0.5 MG TABLET PO SCH (05:18)
[2018-03-29 05:39] LABS: THYROTROPIN RECEPTOR AB <0.50 IU/L (0.00-1.75)
[2018-03-29 05:49] LABS: ANION GAP 16 (5-19); BLOOD UREA NITROGEN 12 mg/dL (7-20); CALCIUM 9.4 mg/dL (8.4-10.2); CARBON DIOXIDE 27 mmol/L (22-30); CHLORIDE 98 mmol/L (98-107); GLUCOSE 69 mg/dL (75-110); LIPASE 1540.2 U/L (23-300); SODIUM 140.6 mmol/L (137-145)
[2018-03-29 07:14] LABS: THYROGLOBULIN AB <1.0 IU/mL (0.0-0.9); THYROID PEROXIDASE (TPO) AB 11 IU/mL (0-34)
--- NOTE | 2018-03-29 09:05 | PDOC DISCHARGE SUMMARY ---
General - Admit/Disc Date/PCP Admission Date/Primary Care Provider: 03/27/18 16:52 Discharge Date: 03/29/18 - Discharge Diagnosis (1) Acute gastritis without bleeding Is this a current diagnosis for this admission?: Yes (2) Acute peptic ulcer NOS Is this a current diagnosis for this admission?: Yes Summary: Biopsies taken during endoscopy pathology pending. H. pylori pending discharged on Protonix twice daily and Carafate (3) Upper gastrointestinal hemorrhage Is this a current diagnosis for this admission?: Yes Summary: Coffee-ground emesis no active bleeding during endoscopy hemoglobin stable in hospital (4) Pancreatitis Is this a current diagnosis for this admission?: Yes Summary: Presenting lipase 500 normalizing within 24 hours to 178 however when diet was advanced increased to 1500 although patient had no increased abdominal pain. Placed on full liquids for 48 hours at discharge and follow-up with primary care (5) Intractable vomiting Is this a current diagnosis for this admission?: Yes (6) Abdominal pain Is this a current diagnosis for this admission?: Yes (7) Hypertension Is this a current diagnosis for this admission?: Yes (8) Hypokalemia Is this a current diagnosis for this admission?: Yes (9) Hyperlipidemia Is this a current diagnosis for this admission?: Yes Summary: Triglycerides 127 cholesterol 176 LDL 138 HDL 30 - Additional Information Resuscitation Status: Full Code Discharge Diet: Full Liquids, Other (Comments) - Times 48 hours then advance as tolerated. Discharge Activity: Activity As Tolerated Prescriptions: Pantoprazole Sodium [Protonix] 40 mg PO BID #60 tablet. Sucluis [Carafate 1 gm Tablet] 1 gm PO ACHS #120 tablet Home Medications: Alprazolam [Xanax] 1 mg PO TID 06/21/17 Lisinopril 20 mg PO DAILY 03/27/18 Pantoprazole Sodium [Protonix] 40 mg PO BID #60 tablet. 03/29/18 Sucralfate [Carafate 1 gm Tablet] 1 gm PO ACHS #120 tablet 03/29/18 History of Present Illness Patient complains of: Nominal pain History of Present Illness: STEVEN CASTREJON is a 42 year old male who presents the emergency room with a complaint of midepigastric abdominal pain and intractable nausea and vomiting for the past 5 days. Patient states on Wednesday night he began to have some pain in his stomach area. The nausea was then followed by vomiting. The next day he had numerous episodes of vomiting to the point of dry heaves. The vomitus contained coffee ground material on and off and at times he was able to cough up blood clots. He denies any change in his bowel habits although his last bowel movement was Wednesday of last week. He attempted to keep himself hydrated with Pedialyte and other liquids but was having intermittent vomiting. At presentation to the emergency room he did not have acute renal injury he was hypokalemic make with a potassium of 3.3. His lipase was 500 and his white count was 16,000 with a hemoglobin of 18 consistent with volume contraction. A CT of the abdomen was performed which was unremarkable and patient was given IV hydration and antiemetics continue to have nausea while in the emergency room. Hospital Course Hospital Course: Patient was admitted to telemetry bed from the emergency room. He was placed on IV Protonix 40 mg every 12 hours and a consultation with surgery was obtained. Patient was hemodynamically stable. Serial hemoglobins were also stable. He did have coffee-ground emesis and some scant bright red blood clots in his emesis on and off throughout the week. Endoscopy revealed normal esophagus diffuse moderate to severe gastritis and multiple gastric ulcerations. He was given a full liquid diet after endoscopy. He tolerated the diet well and it was advanced to a regular diet. At presentation patient had a lipase of 500 which was felt to be nonspecific. The following morning it was 178. However the morning of discharge after eating without increased symptoms or pain his lipase was 1500. For this reason he was given a full liquid diet for 48 hours and instructed to call his primary care provider if his pain should increase. He was discharged on Protonix p.o. 40 mg twice daily and Carafate 1 g 4 times daily. He will need follow-up on his biopsy for H. pylori and antibiotics will need to be added if it is positive. Physical Exam Vital Signs: Temp Pulse Resp BP Pulse Ox 99.7 F 80 19 143/94 H 99 03/28/18 19:20 03/28/18 19:20 03/28/18 19:20 03/28/18 19:20 03/28/18 19:20 Intake & Output 03/28/18 03/29/18 03/30/18 06:59 06:59 06:59 Intake Total 1000 988 Output Total 0 Balance 1000 988 Weight 73.3 kg 74.3 kg General appearance: PRESENT: no acute distress, well-developed, well-nourished Eye exam: PRESENT: conjunctiva pink, EOMI, PERRLA. ABSENT: scleral icterus Neck exam: ABSENT: carotid bruit, JVD, lymphadenopathy, thyromegaly Respiratory exam: PRESENT: clear to auscultation carolynn. ABSENT: rales, rhonchi, wheezes Cardiovascular exam: PRESENT: RRR. ABSENT: diastolic murmur, rubs, systolic murmur GI/Abdominal exam: PRESENT: normal bowel sounds, soft, tenderness - Normal midepigastric tenderness. ABSENT: distended, guarding, mass, organolmegaly, rebound Extremities exam: PRESENT: full ROM. ABSENT: calf tenderness, clubbing, pedal edema Results Laboratory Results: 03/28/18 04:52 03/29/18 04:08 03/29/18 04:08 Sodium 140.6 Potassium 4.0 Chloride 98 Carbon Dioxide 27 Anion Gap 16 BUN 12 Creatinine 0.81 Est GFR ( Amer) > 60 Est GFR (Non-Af Amer) > 60 Glucose 69 L Calcium 9.4 Lipase 1540.2 H Impressions: Abdomen/Pelvis CT 03/27/18 14:56 IMPRESSION: NO SIGNIFICANT OR ACUTE FINDING IN THE ABDOMEN OR PELVIS ON CT SCAN WITH IV CONTRAST. Thyroid Ultrasound 03/28/18 08:00 IMPRESSION: NORMAL THYROID ULTRASOUND. Qualifiers - * PATIENT BEING DISCHARGED WITH ANY OF THE FOLLOWING DIAGNOSIS: No Plan Time Spent: Greater than 30 Minutes
[2018-03-29] MEDS ORDERED: LISINOPRIL 10 MG TABLET PO SCH (10:00)
[2018-03-29 10:42] VITALS: BP 129/69
== END 2018-03-29 11:20 | disposition home or self-care (01) | DRG 383 ==
LOC: ER 13:52 → EH 16:30 → OBSVTOIN 16:52 → 5 18:07
PROVIDERS: ADMIT Internal Medicine; ATTEND Internal Medicine
PROC: 0DB78ZX Excision of Stomach, Pylorus, Via Natural or Artificial Opening Endoscopic, Diagnostic (ICD-10-PCS; principal; 2018-03-28 12:30)
PROC: 3E02340 Introduction of Influenza Vaccine into Muscle, Percutaneous Approach (ICD-10-PCS; 2018-03-29)
DX: K25.3 Acute gastric ulcer without hemorrhage or perforation (principal); K85.90 Acute pancreatitis without necrosis or infection, unspecified; K29.00 Acute gastritis without bleeding; K92.0 Hematemesis; E87.6 Hypokalemia; K21.9 Gastro-esophageal reflux disease without esophagitis; I10 Essential (primary) hypertension; F17.210 Nicotine dependence, cigarettes, uncomplicated; M19.90 Unspecified osteoarthritis, unspecified site; Z23 Encounter for immunization; Z82.49 Family history of ischemic heart disease and other diseases of the circulatory system; Z87.11 Personal history of peptic ulcer disease; Z83.3 Family history of diabetes mellitus; Z79.899 Other long term (current) drug therapy; Z59.7 Insufficient social insurance and welfare support
CPT/HCPCS: 36415; 43239; 731; 74177; 76536; 80048; 80053; 80061; 81001; 83519; 83690; 83735; 84100; 84439; 84443; 84481; 84484; 85025; 86376; 86800; 88305; 88342; 90471; 90686; 93005; 93010; 96361; 96374; 96375; 96376; 99285; G0008; J2270; J2405; J2704; J3480; J3490; J7030; S0164

== ENCOUNTER 2018-05-27 13:21 | Emergency (ER) | payer MEDICAID ==
[2018-05-27 13:27] VITALS: BP 142/91
== END 2018-05-27 14:56 | disposition left against medical advice (07) ==
LOC: ER 13:21
DX: Z53.21 Procedure and treatment not carried out due to patient leaving prior to being seen by health care provider (principal)

== ENCOUNTER → 2019-11-15 | Outpatient (CLI) | payer SELFPAY ==
[2019-11-15 09:39] LABS: HEMATOCRIT 47.2 % (37.9-51.0); HEMOGLOBIN 16.1 g/dL (13.5-17.0); MEAN CORPUSCULAR HEMOGLOBIN 31.1 pg (27.0-33.4); MEAN CORPUSCULAR HGB CONC 34.2 g/dL (32.0-36.0); MEAN CORPUSCULAR VOLUME 91 fl (80-97); PLATELET COUNT 332 10^3/uL (150-450); RED CELL DISTRIBUTION WIDTH 13.2 % (11.5-14.0); WHITE BLOOD COUNT 12.5 10^3/uL (4.0-10.5)
[2019-11-15 09:54] LABS: ALBUMIN 4.5 g/dL (3.5-5.0); ALKALINE PHOSPHATASE 85 U/L (38-126); ANION GAP 9 (5-19); ASPARTATE AMINO TRANSFERASE 24 U/L (17-59); BILIRUBIN,TOTAL 0.5 mg/dL (0.2-1.3); BLOOD UREA NITROGEN 12 mg/dL (7-20); CALCIUM 9.5 mg/dL (8.4-10.2); CARBON DIOXIDE 28 mmol/L (22-30); CHLORIDE 101 mmol/L (98-107); GLUCOSE 109 mg/dL (75-110); TOTAL PROTEIN 7.4 g/dL (6.3-8.2)
[2019-11-15 10:04] LABS: FREE T3 4.97 pg/mL (2.77-5.27); FREE T4 (FREE THYROXINE) 1.03 ng/dL (0.78-2.19)
[2019-11-15 10:17] LABS: THYROID STIMULATING HORMONE 2.63 uIU/mL (0.47-4.68)
== END ==
LOC: OD 07:59
PROVIDERS: ATTEND Pediatrics
DX: R53.83 Other fatigue (principal)
CPT/HCPCS: 36415; 80053; 83036; 84439; 84443; 84481; 85027